=== PATIENT | female | born 1940 | race Caucasian/White ===

== ENCOUNTER 2018-07-21 11:14 | Day surgery (SDC) | payer MEDICARE, SELFPAY ==
[2018-07-21] MEDS: PROPARACAINE 0.5% OPHTH SOL 2 DROPS EYE-OP (11:40)
[2018-07-21] MEDS: CATARACT EYE COMPOUND (10 DROPS/SYRINGE) 3 DROPS EYE-OP (11:45)
[2018-07-21 11:46] VITALS: BMI 34.9
[2018-07-21 11:52] VITALS: BP 132/74; PULSE 71; RESP 15; TEMP 36; O2SAT 95
--- NOTE | 2018-07-21 12:12 | PM.PREOP ---
Pre-operative Note Interval Note History & Physical reviewed/Exam performed by Physician: Yes Changes to H&P: No
[2018-07-21] MEDS: PHENYLEPHRINE/LIDOCAINE VIAL (OR) 0.2 ML EYE-OP (12:40)
[2018-07-21] MEDS: CHONDROIDTIN/SOD HYALURONATE 1.05 ML SYRINGE INTRAOCULA (12:41)
[2018-07-21] MEDS: MOXIFLOXACIN OPHTH DROPS 3 ML BOTTLE 2 DROPS INJ (12:41)
[2018-07-21] MEDS: BALANCED SALT IRRIG SOLN NO.2 500 ML, EPINEPHrine 1 MG IRR (12:43)
[2018-07-21] MEDS: LIDOCAINE 2% INJ SDV 0.5 ML TOP (12:44)
[2018-07-21] MEDS: BALANCED SALT IRRIG SOLN NO.2 15 ML IRR (12:45)
--- NOTE | 2018-07-21 12:58 | PM.OP.1 ---
Procedure & Clinicians Procedure: cataract extraction with intraocular lens implant, right Same procedure as scheduled: Yes Indications: 3+ nuclear sclerosis, anterior cortical spoking, visually significant Surgeon: Agustin Limon Click Yes if Unassisted: Yes Anesthesia Type: MAC +/- Operative Notes Procedure in detail: The patient was brought to the operating suite. The correct patient, surgical site and lens were confirmed. 0.5 % tetracaine drops were placed in the right eye. The patient was prepped and draped in the typical sterile manner. A lid speculum was placed in the eye. A paracentesis port was created with a side-port blade. 0.1 mL of 1% preservative free lidocaine with phenylephrine was injected into the anterior chamber. Viscoelastic was injected into the anterior chamber. A 2.6mm keratome was used to create a clear corneal temporal incision. Cystotome and Utrata forceps were used to create a continuous curvilinear capsulorrhexis. Balanced salt solution was used to hydrodissect the nucleus. Phacoemulsification was used to remove the lens. The capsular bag was inflated with viscoelastic. A Rico ZBOO20.5D lens was inserted into the capsule. Viscoelastic was removed and the wound hydrated. The wound was found to be leak free and the eye was assessed to be at normal physiologic pressure. 0.1mL Vigamox was injected into the anterior chamber. The lid speculum was removed and the patient left the operating room in excellent condition. Complications: none Condition: stable Disposition: same day surgery
[2018-07-21 13:05] VITALS: BP 127/72; PULSE 56; RESP 12; TEMP 36; O2SAT 97
== END 2018-07-21 13:17 | disposition home or self-care (01) ==
PROVIDERS: Family Provider Internal Medicine Hematology & Oncology; PCP Family Medicine; Visit Provider Ophthalmology
DX: H25.11 Age-related nuclear cataract, right eye (principal)
CPT/HCPCS: J0171; J2250; J3010

== ENCOUNTER 2018-08-04 12:24 | Day surgery (SDC) | payer MEDICARE, SELFPAY ==
[2018-08-04 12:40] VITALS: BP 126/76; PULSE 84; RESP 15; TEMP 36.7; O2SAT 96; BMI 35.9
[2018-08-04] MEDS: PROPARACAINE 0.5% OPHTH SOL 2 DROPS EYE-OP (12:45)
[2018-08-04] MEDS: CATARACT EYE COMPOUND (10 DROPS/SYRINGE) 3 DROPS EYE-OP (12:47)
--- NOTE | 2018-08-04 13:32 | PM.PREOP ---
Pre-operative Note Interval Note History & Physical reviewed/Exam performed by Physician: Yes Changes to H&P: No
[2018-08-04] MEDS: PHENYLEPHRINE/LIDOCAINE VIAL (OR) 0.2 ML EYE-OP (13:55)
[2018-08-04] MEDS: CHONDROIDTIN/SOD HYALURONATE 1.05 ML SYRINGE INTRAOCULA (13:56)
[2018-08-04] MEDS: BALANCED SALT IRRIG SOLN NO.2 500 ML, EPINEPHrine 1 MG IRR (13:56)
[2018-08-04] MEDS: MOXIFLOXACIN OPHTH DROPS 3 ML BOTTLE 2 DROPS INJ (13:56)
[2018-08-04] MEDS: TETRACAINE 0.5% OPHTH DROPS 4 ML 2 DROPS EYE-RIGHT (13:57)
[2018-08-04] MEDS: LIDOCAINE 2% INJ SDV 5 ML INJ (13:58)
--- NOTE | 2018-08-04 14:16 | P.OP_ITS ---
Procedure & Clinicians Procedure: cataract extraction with intraocular lens implant, left Same procedure as scheduled: Yes Indications: nuclear sclerosis, visually significant cataract Surgeon: Agustin Limon Click Yes if Unassisted: Yes Anesthesia Type: MAC +/- Operative Notes Procedure in detail: The patient was brought to the operating suite. The correct patient, surgical site and lens were confirmed. 0.5 % tetracaine drops were placed in the left eye. The patient was prepped and draped in the typical sterile manner. A lid speculum was placed in the eye. 2% lidocaine was placed on the eye. A paracentesis port was created with a side-port blade. 0.1 mL of 1 % preservative free lidocaine was injected into the anterior chamber. Viscoelastic was injected into the anterior chamber. A 2.6mm keratome was used to create a clear corneal temporal incision. Cystotome and Utrata forceps were used to create a continuous curvilinear capsulorrhexis. Balanced salt solution was used to hydrodissect the nucleus. Phacoemulsification was used to remove the lens. The capsular bag was inflated with viscoelastic. A Rico ZBOO +22.0D lens was inserted into the capsule. Viscoelastic was removed and the wound hydrated and sealed with Resure glue. The wound was found to be leak free and the eye was assessed to be at normal physiologic pressure. 0.1mL Vigamox was injected into the anterior chamber. The lid speculum was removed and the patient left the operating room in excellent condition. Complications: none Condition: stable Disposition: same day surgery
[2018-08-04 14:21] VITALS: BP 122/69; PULSE 66; RESP 18; TEMP 36.3; O2SAT 99
== END 2018-08-04 14:44 ==
PROVIDERS: Family Provider Internal Medicine Hematology & Oncology; PCP Family Medicine; Visit Provider Ophthalmology
DX: H25.12 Age-related nuclear cataract, left eye (principal)
CPT/HCPCS: J0171; J2250; J3010